=== PATIENT | female | born 1985 | race Caucasian/White ===

== ENCOUNTER 2021-10-20 12:58 | Observation (INO) | payer OTHER ==
[~2021-10-20] VITALS: Ht 175.3 cm; Wt 81.5 kg
[2021-10-20 13:44] LABS: HEMOGLOBIN 10.8 gm/dl (12.3-15.3); RED BLOOD COUNT 3.23 M/UL (4.00-5.10); WHITE BLOOD COUNT 5.6 K/UL (4.5-11.0)
[2021-10-21 02:55] LABS: HEMOGLOBIN 9.5 gm/dl (12.3-15.3)
[2021-10-21 02:58] LABS: RED BLOOD COUNT 2.81 M/UL (4.00-5.10); WHITE BLOOD COUNT 3.8 K/UL (4.5-11.0)
[2021-10-21] MEDS ORDERED: VELPHORO500 MG PO (11:07)
[2021-10-21] MEDS ORDERED: LOKELMA5 GM PO (11:07)
[2021-10-21] MEDS ORDERED: AMLODIPINE BESY10 MG PO (11:08)
[2021-10-21] MEDS ORDERED: ASTAGRAF XL1 MG PO (11:09)
[2021-10-21] MEDS ORDERED: CLONIDINE1 EAC2 TD (11:10)
[2021-10-22 03:19] LABS: HEMOGLOBIN 9.2 gm/dl (12.3-15.3); RED BLOOD COUNT 2.76 M/UL (4.00-5.10)
[2021-10-22 03:24] LABS: WHITE BLOOD COUNT 2.2 K/UL (4.5-11.0)
[2021-10-22 08:15] LABS: HBSAG SCREEN Negative (Negative); HCV AB <0.1 (0.0-0.9); HEP A AB, IGM Negative (Negative); HEP B CORE AB, IGM Negative (Negative)
[2021-10-22] MEDS ORDERED: CARVEDILOL25 MG PO (10:08)
[2021-10-22] MEDS ORDERED: NIFEDIPINE ER60 M1 PO (10:08)
--- NOTE | 2021-10-22 17:45 | NUR ---
PT UPSET WANTING TO BE DISCHARGED BECAUSE STATING SHE DOESN'T WANT TO STAY HERE ALL WEEKEND WAITING FOR OUTPATIENT DIALYSIS TO BE ARRANGED. DR. PATTERSON NOTIFIED AND DR. VÁSQUEZ. DR. VÁSQUEZ SPOKE WITH PT. ON PHONE AND STATES HE IS UNABLE TO DISCHARGE PT DUE TO HER NOT BEING RELEASED BY NEPHRO AT THIS TIME. DR. PATTERSON STATES PT CAN'T BE DISCHARGED UNTIL OUTPUT DIALYSIS IS ARRANGED. PT STATES SHE IS SIGNING AMA. AMA PAPERS GIVEN TO PT. AND PT. SIGNED
== END 2021-10-22 18:18 | disposition left against medical advice (07) ==
LOC: ER1 12:58 → M/S 16:07 → CDU 16:07 → M/S 19:09
PROVIDERS: Internal Medicine Nephrology; Physician Assistant; ADMIT Internal Medicine
DX: I13.2 Hypertensive heart and chronic kidney disease with heart failure and with stage 5 chronic kidney disease, or end stage renal disease (principal); I50.9 Heart failure, unspecified; N18.6 End stage renal disease; I16.9 Hypertensive crisis, unspecified; Z99.2 Dependence on renal dialysis; E87.5 Hyperkalemia; E87.70 Fluid overload, unspecified; Z53.29 Procedure and treatment not carried out because of patient's decision for other reasons; Z88.8 Allergy status to other drugs, medicaments and biological substances; Z94.0 Kidney transplant status
CPT/HCPCS: 36415; 71045; 80048; 80053; 80074; 82550; 82553; 83036; 83880; 84132; 84484; 85025; 90935; 90937; 93005; 96374; 96375; 96376; 99285; G0378; J1170; J1644; J2405